=== PATIENT | male | born 1980 | race African-American/Black ===

== ENCOUNTER 2019-10-25 11:43 | Emergency (ER) | payer BC, SELFPAY ==
--- NOTE | ~2019-10-25 | XR_ITS ---
EXAMINATION: XR ankle RT min 3V DATE: 10/25/2019 12:34 INDICATION: Right ankle injury and pain. TECHNIQUE: 4 views of right ankle were obtained. COMPARISON: None. FINDINGS: Bone alignment is normal. No fracture. Joint spaces are well maintained. There is an enthes ophyte at posterior aspect of calcaneal tuberosity. IMPRESSION: 1. No fracture. Reviewed, dictated and finalized at location A. IMPRESSION: 1. No fracture.
[2019-10-25 11:53] VITALS: BP 123/75; PULSE 72; RESP 18; TEMP 36.9; O2SAT 100
--- NOTE | 2019-10-25 13:13 | ED.GENADULT ---
HPI - General Adult General Chief complaint: Extremity Injury, Lower Stated complaint: right lower leg injury Time Seen by Provider: 10/25/19 11:58 Source: patient Mode of arrival: ambulatory Limitations: no limitations History of Present Illness HPI narrative: Patient is a 39-year-old male who presents with right ankle injury that occurred while playing basketball was playing when he felt a pop at the Achilles and has since been unable to perform range of motion of the ankle noting aching pain and drop-off at the Achilles tendon location. Pain radiates into the calf. Patient presents per private vehicle has not had anything for his symptoms. Related Data Home Medications Medication Instructions Recorded Confirmed ferrous sulfate 325 mg PO DAILY 10/25/19 Allergies Allergy/AdvReac Type Severity Reaction Status Date / Time No Known Allergies Allergy Verified 10/25/19 13:23 Review of Systems Review of Systems: All systems reviewed & are unremarkable except as noted in HPI and below PMFSH Social History Social History (Updated 10/25/19 @ 13:14 by Tate Mohan PA-C) Smoking status: Never smoker Exam Narrative: Exam Narrative: GENERAL: Well-appearing, well-nourished, and in no acute distress. HEAD: Normocephalic, atraumatic. EYES: PERRLA and EOMI. ENT: Nares clear, no rhinorrhea or epistaxis. Mucous membranes moist. EXTREMITIES: Drop-off and tenderness at the Achilles tendon location of the right ankle SKIN: Warm, dry, no rash. NEURO: No focal deficits. Alert and oriented x3. Cranial nerves II through XII grossly intact. Neurovascularly intact PSYCH: Normal mood and affect. Course Course Emergency Course: Patient in the room aware of case findings treatment plan and diagnosis agreeing to follow with orthopedic surgery placed in short leg splint with crutches Consultations Consultation #1: Discussed case with orthopedic surgeon who will follow patient on Sunday Date: 10/25/19 Time: 14:12 Vital Signs Vital signs: Vital Signs Temperature 98.5 F 10/25/19 11:53 Pulse Rate 72 10/25/19 11:53 Respiratory Rate 18 10/25/19 11:53 Blood Pressure 123/75 10/25/19 11:53 Pulse Oximetry 100 10/25/19 11:53 Temperature 98.5 F 10/25/19 11:53 Pulse Rate 72 10/25/19 11:53 Respiratory Rate 18 10/25/19 11:53 Blood Pressure 123/75 10/25/19 11:53 Pulse Oximetry 100 10/25/19 11:53 Medical Decision Making MDM Narrative Medical decision making narrative: Patients injury or pain is consistent with musculoskeletal etiology. No signs of neurological or vascular compromise on exam. Compartments and tisues are soft without signs of compartment syndrome. Pain is felt appropriate for further evaluation on an outpatient basis. Vital Signs Vital Signs: Vital Signs Temperature 98.5 F 10/25/19 11:53 Pulse Rate 72 10/25/19 11:53 Respiratory Rate 18 10/25/19 11:53 Blood Pressure 123/75 10/25/19 11:53 Pulse Oximetry 100 10/25/19 11:53 Temperature 98.5 F 10/25/19 11:53 Pulse Rate 72 10/25/19 11:53 Respiratory Rate 18 10/25/19 11:53 Blood Pressure 123/75 10/25/19 11:53 Pulse Oximetry 100 10/25/19 11:53 Imaging Data Radiologist's impression: ITS Impressions Ankle X-Ray 10/25/19 12:37 IMPRESSION: 1. No fracture. Discharge Plan Discharge Clinical Impression: Achilles tendon rupture Patient Disposition: Home, Self-Care Condition: Stable Instructions: Antibiotic Form, Crutch Instructions (ED), Achilles Tendon Rupture (ED) Additional Instructions: Wear brace and use crutches. No weight on the affected leg. Ice and elevate extremity. Pain medication as needed and directed. Follow up with your doctor for further care in the next 2 days Prescriptions: New acetaminophen [Tylenol Arthritis Pain] 650 mg tablet extended release 650 mg PO Q8H PRN (Reason: fever or pain) Qty: 14 RF: 0 No Action ferrous sulfate 325 m
== END 2019-10-25 15:25 | disposition home or self-care (01) ==
PROVIDERS: Emergency Provider Emergency Medicine; PCP Family Medicine Sports Medicine
DX: S86.011A Strain of right Achilles tendon, initial encounter (principal); X50.9XXA Other and unspecified overexertion or strenuous movements or postures, initial encounter; Y93.67 Activity, basketball
CPT/HCPCS: 29515; 73610; 99283

== ENCOUNTER 2020-02-02 07:29 | Outpatient (RCR) | payer OTHER, SELFPAY ==
[2020-02-02 08:02] LABS: Immature Platelet Fraction Pct 4.7 % (0.9-11.2); Mean Platelet Volume 11.7 fl (7.4-10.4); Platelet Count Result 129 k/mm3 (150-375)
[2020-02-02] MEDS: ACETAMINOPHEN 325 MG TABLET 650 MG PO (08:57)
[2020-02-02] MEDS: diphenhydrAMINE HCl CAP 25 MG CAPSULE PO (08:57)
[2020-02-02 10:55] VITALS: BP 134/99; PULSE 57; RESP 16; TEMP 36.2; O2SAT 100
[2020-02-02 11:10] VITALS: BP 115/81; PULSE 56; RESP 16; TEMP 36.4; O2SAT 100
[2020-02-02 12:00] VITALS: BP 117/77; PULSE 59; RESP 16; TEMP 36.3; O2SAT 100
== END 2020-05-02 23:59 | disposition home or self-care (01) ==
LOC: ANHCPCTRAN 07:29
PROVIDERS: PCP Family Medicine Sports Medicine; Visit Provider Internal Medicine Hematology & Oncology
DX: D69.1 Qualitative platelet defects (principal)
CPT/HCPCS: 36415; 36430; 85049; 85055; 86850; 86900; 86901; P9036; A9270